=== PATIENT | female | born 1975 | race Caucasian/White ===

== ENCOUNTER 2016-03-23 08:45 | Emergency (ER) | payer OTHER ==
[2016-03-23 09:20] VITALS: BP 100/84
--- NOTE | 2016-03-23 10:22 | UC ---
Shoulder Pain HPI - HPI Summary HPI Summary: The patient comes in today for: 1. Right shoulder pain: Onset: 4 days ago. Palliative/provocative: Movement makes it worse. Rest makes it better. Quality: Ache, sharp with movements, spasms. Region: Right shoulder and arm. Severity: 8/10 Time: Constant. Associated symptoms: Numbness: She states that she has numbness of the 4th, 3rd, and 2nd fingers. Precipitating event: None. Home Rx: Ibuprofen, 400 mg 3 times a day for the past week. This helped. Previous disease: No known continuing problem shoulder/neck pain. * - History of Current Complaint Chief Complaint: UCUpperExtremity Stated Complaint: RIGHT SIDE NECK,BACK,ARM COMPLAINT Time Seen by Provider: 03/23/16 10:15 Hx Obtained From: Patient Hx Last Menstrual Period: 02/26/16 ?: No - Allergies/Home Medications Allergies/Adverse Reactions: Allergies Allergy/AdvReac Type Severity Reaction Status Date / Time No Known Allergies Allergy Verified 03/23/16 09:05 Home Medications: Home Medications Cetirizine* [ZyrTEC*] 10 mg PO DAILY 03/23/16 [History Confirmed 03/23/16] Levonorgestrel (IUD) (NF) [Mirena (NF)] 20 mcg IU 03/23/16 [History] Levothyroxine TAB* [Synthroid 125 MCG TAB*] 125 mcg PO DAILY 03/23/16 [History Confirmed 03/23/16] Multiple Vitamins W/ Minerals [Multiple Vitamin/Minerals] 1 tab PO DAILY [History Confirmed 03/23/16] Otc Pain Patch PRN 03/23/16 [History] PARoxetine HCL TAB* [Paxil TAB*] 20 mg PO DAILY 03/23/16 [History Confirmed ] PMH/Surg Hx/FS Hx/Imm Hx Previously Healthy: No Endocrine History Of: Reports: Thyroid Disease, Hypothyroidism Denies: Diabetes, Hyperthyroidism, Dyslipidemia Cardiovascular History Of: Denies: Cardiac Disorders, Hypertension, Pacemaker/ICD, Myocardial Infarction , Congestive Heart Failure, Atrial Fibrillation, Deep Vein Thrombosis, Bleeding Disorders Respiratory History Of: Denies: COPD, Asthma, Bronchitis, Pneumonia, Pulmonary Embolism GI/ History Of: Denies: Gastroesophageal Reflux, Ulcer, Gastrointestinal Bleed, Gall Bladder Disease, Kidney Stones, Diverticulitis, Renal Disease, Urosepsis Neurological History Of: Denies: TIA, CVA, Dementia, Seizures, Migraine Psychological History Of: Reports: Anxiety Denies: Depression, Bipolar Disorder, Schizophrenia, Post Traumatic Stress Disorder Cancer History Of: Denies: Lung Cancer, Colorectal Cancer, Breast Cancer, Prostate Cancer, Cervical Cancer Other History Of: Negative For: HIV, Hepatitis B, Hepatitis C, Anticoagulant Therapy - Surgical History Surgical History: Yes Surgery Procedure, Year, and Place: ADNOINECTOMY. HIP SURGERY AN . PARTIAL THYROIDECTOMY. D&E - Family History Known Family History: Positive: Cardiac Disease, Hypertension - Social History Occupation: Employed Full-time Alcohol Use: Occasionally Substance Use Type: None Smoking Status (MU): Never Smoked Tobacco Review of Systems Constitutional: Negative Skin: Negative Eyes: Negative ENT: Negative Respiratory: Negative Cardiovascular: Negative Gastrointestinal: Negative Genitourinary: Negative All Other Systems Reviewed And Are Negative: Yes Physical Exam Triage Information Reviewed: Yes Appearance: Well-Appearing, Well-Nourished, Pain Distress - She sits with reduced head movement. Vital Signs: Initial Vital Signs Temp 98.2 F 03/23/16 09:11 Pulse 69 03/23/16 09:11 Resp 18 03/23/16 09:11 BP 100/84 03/23/16 09:11 Pulse Ox 99 03/23/16 09:11 Vital Signs Reviewed: Yes Eyes: Positive: Conjunctiva Clear. Negative: Discharge ENT: Positive: Hearing grossly normal. Negative: Pharyngeal erythema, Nasal congestion, Nasal drainage, TM bulging, TM dull, TM red, Tonsillar swelling, Tonsillar exudate Dental: Negative: Gross Decay/Caries @, Dental Fracture @ Neck: Positive: Supple, Nontender, No Lymphadenopathy. Negative: Nuchal Rigidity - She does not have nuchal rigidity suggesting meningitis, but there is pain with movement at extremes of extension, flexion, bilateral rotation and bilateral, laterla flexion. Respiratory: Positive: Lungs clear, No respiratory distress, No accessory muscle use. Negative: Crackles, Rhonchi Cardiovascular: Positive: RRR, No Murmur Abdomen Description: Positive: Nontender, No Organomegaly, Soft. Negative: Distended, Hernia @ Musculoskeletal: Positive: Strength Intact, No Edema, ROM Limited @ - For the neck as mentioned above., Other: - She has tenderness and reproduction of her pain with palpation of her right scalene musculature and of the trapezius at the medial, superior angle of the scapula, and along the superior border. There were muscular induration and tenderness along these lines. Pressure on them reproduced tenderness. Neurological: Positive: Alert, Muscle Tone Normal Psychological: Positive: Normal Response To Family, Age Appropriate Behavior, Consolable Skin: Negative: rashes, breakdown Shoulder Course/Dx - Differential Dx/Diagnosis Differential Diagnosis/HQI/PQRI: Arthritis, Bursitis, Sprain Provider Diagnoses: Right muscular strain. Right neck strain. Discharge - Discharge Plan Condition: Stable Disposition: HOME Patient Education Materials: Cervical Strain (ED), Neck Pain (ED) Referrals: Sara Block MD [Primary Care Provider] - 1 Week (See your primary care provider in about a week to see how well you are doing. If you get worse between now and then please be seen sooner by us or the ER.)
== END 2016-03-23 10:54 | disposition home or self-care (01) ==
LOC: UCCORT 08:45
DX: S16.1XXA Strain of muscle, fascia and tendon at neck level, initial encounter (principal); X58.XXXA Exposure to other specified factors, initial encounter; Y93.9 Activity, unspecified; Y92.9 Unspecified place or not applicable
CPT/HCPCS: 99202; G0463